=== PATIENT | female | born 1955 | race Caucasian/White ===

== ENCOUNTER → 2018-08-25 | Outpatient (CLI) | payer OTHER | LOC: M SLEEP HO 12:54 | DX: G47.30 Sleep apnea, unspecified (principal) | CPT/HCPCS: G0399 ==

== ENCOUNTER → 2020-08-31 | Outpatient (CLI) | payer OTHER ==
[~2020-08-31] MED LIST: HYDR-3363; METF10004; TRAZ-252; VITA50LO PO
== END ==
LOC: M LABSMTC 12:42
PROVIDERS: ATTEND Anesthesiology
DX: Z01.812 Encounter for preprocedural laboratory examination (principal); Z20.828 Contact with and (suspected) exposure to other viral communicable diseases
CPT/HCPCS: C9803; U0003

== ENCOUNTER 2020-09-05 07:37 | Day surgery (SDC) | payer MEDICARE ==
[~2020-09-05] VITALS: Ht 154.9 cm; Wt 87.0 kg
[~2020-09-05 07:37] MED LIST changes: +LR 1,000 ML IV ONE; +ceFAZolin SOD 2 GM in IV 1 EA IV ONE
[2020-09-05] MEDS ORDERED: BUPIVACAINE/EPIN 0.5% 30 ML VIAL As Ordered ONE (08:58)
[2020-09-05] MEDS ORDERED: fentaNYL 250 MCG/5 ML INJECTION (J3010) As Ordered ONE (09:28)
[2020-09-05] MEDS ORDERED: KETOROLAC 60MG 2ML VIAL As Ordered ONE (09:28)
[2020-09-05] MEDS ORDERED: ONDANSETRON 4MG/2ML VIAL As Ordered ONE (09:28)
[2020-09-05] MEDS ORDERED: propofoL 200 MG/20 ML VIAL As Ordered ONE (09:28)
[2020-09-05] MEDS ORDERED: dexameTHASONE 4 MG/ML 1ML VIAL (J1100 PER 1MG) As Ordered ONE (09:28)
[2020-09-05] MEDS ORDERED: LIDOCAINE 2% 100MG/5ML SDV (FOR ANES.) As Ordered ONE (09:28)
[2020-09-05] MEDS ORDERED: ROCURONIUM BROMIDE 50 MG/5 ML VIAL As Ordered ONE (09:28)
[2020-09-05] MEDS ORDERED: MIDAZOLAM INJ 2MG/2ML VIAL (J2250 PER 1MG) As Ordered ONE (09:28)
[2020-09-05] MEDS ORDERED: ACETAMINOPHEN 1000MG 100ML IV BTL (OFIRMEV) (J0131 PER 10MG) As Ordered ONE (09:34)
[2020-09-05] MEDS ORDERED: SUGAMMADEX SODIUM 500 MG/5 ML VIAL (BRIDION) As Ordered ONE (09:42)
[2020-09-05] MEDS ORDERED: LR 1,000 ML IV SCH (11:00)
[2020-09-05] MEDS ORDERED: MORPHINE 2 MG/ML 1ML VIAL (J2270) IV PRN (11:00)
[2020-09-05] MEDS ORDERED: fentaNYL 100 MCG/2 ML INJECTION (J3010) IV PRN (11:00)
[2020-09-05] MEDS ORDERED: METOCLOPRAMIDE INJ 10MG/2ML VIAL (J2765 PER 1) IV PRN (11:00)
[2020-09-05] MEDS ORDERED: ONDANSETRON 4MG/2ML VIAL IV PRN (11:00)
[2020-09-05] MEDS ORDERED: oxyCODONE 5MG TAB PO PRN (11:00)
[2020-09-05] MEDS ORDERED: NORCO, ANEXSIA 5/325MG TABLET (HYDROcodone/ACETAMINOPHEN) PO PRN (12:00)
[2020-09-05 12:15] VITALS: BP 127/60
--- NOTE | 2020-09-05 13:13 | RO ---
DATE OF OPERATION: 09/05/2020 PREOPERATIVE DIAGNOSIS: Incarcerated umbilical hernia. POSTOPERATIVE DIAGNOSIS: Incarcerated umbilical hernia. PROCEDURE: Robotic repair of incarcerated umbilical hernia repair. SURGEON: Jac Chen DO ASSIST: Esperanza Colin ANESTHESIA: General. EBL: 5. COMPLICATIONS: None. INDICATIONS FOR PROCEDURE: The patient is a 54-year-old female who presents with a large lump at her umbilicus with a nonreducible hernia. Recommendation was to proceed with robotic repair. Risks and benefits of the procedure not limited to but including bleeding, infection, hernia recurrence, hernia formation, damage to surrounding structures, and need for further surgery were discussed in detail with the patient. Informed consent was obtained and procedure was planned. PROCEDURE: The patient was brought back to operating room #7. After sufficient sedation the abdomen was sterilely prepped and draped. Time out was done confirming proper patient, proper procedure. Following that, an 8 mm incision was made in the left lower quadrant and Veress needle was inserted, and the abdomen was insufflated to 15 mmHg. Veress needle was removed and an 8 mm Optiview port was used to gain access to the abdomen. Once the abdomen was entered, there were adhesions in the right upper quadrant from a previous open cholecystectomy as well as omentum stuck within the umbilical hernia sac. Another 8 mm port was placed subxiphoid just to the left of the falciform. Using that port I was able to place in some scissors with cautery and take down the adhesions in the right upper quadrant with enough space to place a right upper quadrant port. Once the right-sided port was placed, the robot was docked to the ports. Next from the console the omentum was carefully dissected free and reduced from the hernia. Next, a preperitoneal pocket was created with a horizontal incision superior to the umbilicus. The preperitoneal space was then dissected free heading inferiorly surrounding the hernia sac and the hernia sac was carefully dissected free and completely reduced. Once it was completed reduced, 0 Strata fix suture was used to reapproximate the fascia at the umbilicus. Once that was completed, the space was measured to be 4 x 5 cm. An oval piece of ProGrip mesh was then placed over the top of the defect and the fascia. The peritoneum was then closed over top of the mesh using a 2-0 V-Loc. Once the peritoneal defect was completely closed, the abdomen was desufflated, ports were removed, and skin incisions were closed with 4-0 Vicryl subcuticular sutures. The abdomen was cleaned and dried. Steri-Strips, 4 x 4 and tape were applied. This ended the procedure. ALEKS
== END 2020-09-05 12:15 | disposition home or self-care (01) ==
LOC: M SDC 07:37
PROVIDERS: ATTEND Surgery
DX: K42.0 Umbilical hernia with obstruction, without gangrene (principal); E11.9 Type 2 diabetes mellitus without complications; F41.9 Anxiety disorder, unspecified; F17.218 Nicotine dependence, cigarettes, with other nicotine-induced disorders; Z88.5 Allergy status to narcotic agent; Z79.84 Long term (current) use of oral hypoglycemic drugs; Z79.899 Other long term (current) drug therapy; G47.30 Sleep apnea, unspecified
CPT/HCPCS: 49653; C1781; J0131; J0690; J1100; J1885; J2250; J2405; J3010; S2900

== ENCOUNTER → 2022-06-21 | Outpatient (REF) | payer MEDICARE ==
[~2022-06-21] MED LIST changes: -LR 1,000 ML IV ONE; -ceFAZolin SOD 2 GM in IV 1 EA IV ONE
[2022-06-21 21:07] LABS: MAGNESIUM LEVEL 2.3 MG/DL (1.8-2.4)
[2022-06-21 21:31] LABS: TOTAL 25(OH) VITAMIN D 25.2 NG/ML (30.0-100.0)
== END ==
LOC: M SFHCRHEU 14:26
PROVIDERS: ATTEND Internal Medicine
DX: R53.82 Chronic fatigue, unspecified (principal); Z79.899 Other long term (current) drug therapy

== ENCOUNTER → 2024-02-13 | Outpatient (CLI) | payer MEDICARE | LOC: M RAD 10:57 | PROVIDERS: ATTEND Orthopaedic Surgery | DX: M25.562 Pain in left knee (principal); M25.462 Effusion, left knee; M71.22 Synovial cyst of popliteal space [Baker], left knee; S83.242A Other tear of medial meniscus, current injury, left knee, initial encounter; X58.XXXA Exposure to other specified factors, initial encounter; Y92.9 Unspecified place or not applicable; Y93.9 Activity, unspecified; Y99.9 Unspecified external cause status ==

== ENCOUNTER → 2024-05-18 | Outpatient (CLI) | payer MEDICARE | LOC: M SOG 08:07 | PROVIDERS: ATTEND Orthopaedic Surgery | DX: Z53.9 Procedure and treatment not carried out, unspecified reason (principal) ==